=== PATIENT | male | born 1955 | race Caucasian/White ===

== ENCOUNTER 2017-03-23 07:00 | Inpatient (IN) ==
[2017-03-23] MEDS ORDERED: Piperacillin/Tazobactam 3.375 GM in D5% in Water (Mini-Bag+) 100 ML IVPB ONE (07:02)
[2017-03-23] MEDS ORDERED: Ipratropium/Albuterol Neb 3 ML IH ONE (07:02)
[2017-03-23] MEDS ORDERED: methylPREDNISolone 125 MG/2 ML VIAL IVP ONE (07:02)
--- NOTE | 2017-03-23 07:05 | Emergency Department Note ---
Disposition Clinical Impression: Acute exacerbation of chronic obstructive airways disease Disposition: Admitted As Inpatient Condition: Fair [facility]errals: [facility]Primary Care Provider[facility] - Forms: ED Satisfaction Letter Time of Disposition: 08:06 SOB HPI - General Chief Complaint: ED Shortness of Breath/Dyspnea Stated Complaint: REID Time Seen by Provider: 03/23/17 07:02 Source: patient, EMS Mode of arrival: EMS Limitations: no limitations Nursing Notes Reviewed: Yes Vital Signs Reviewed: Yes - History of Present Illness 61-year-old who apparently has a history of COPD, unresectable adenocarcinoma the right lung who comes in with increasing shortness of breath. The patient vomited last night and thinks he may have aspirated. Squad was called this morning the patient was found to pulse ox of mid 70s. Patient was placed on CPAP by the squad eyes according to them has improved markedly his pulse ox is in the 90s. 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 illness Severity: severe Consistency/Duration: constant Improves with: other Worsens with: exertion Known history of: COPD, other (Lung cancer) Associated symptoms: Reports: fever, cough, wheezing, sputum production Treatment prior to arrival: oxygen, NIPPV Cough Description: Involuntary Cough Frequency: Intermittent - Related Data Home Medications Medication Instructions Recorded Confirmed Aspirin [Adult Low Dose Aspirin EC] 81 mg PO DAILY 10/30/15 05/15/16 Diazepam [Valium] 10 mg PO HS PRN 10/30/15 05/15/16 Dronendrone [Multaq] 400 mg PO BID 10/30/15 05/15/16 Furosemide [Lasix] 20 mg PO BID 10/30/15 05/15/16 Omeprazole [PriLOSEC] 40 mg PO DAILY 10/30/15 05/15/16 Venlafaxine [Effexor] 75 mg PO BID 10/30/15 05/15/16 Warfarin [Coumadin] 5 mg PO 4XW 10/30/15 05/15/16 Diltiazem HCl [Diltiazem 24Hr Cd] 240 mg PO HS 11/01/15 05/15/16 Albuterol Neb [Proventil Neb] 2.5 mg IH Q4HR PRN 04/10/16 05/15/16 Atorvastatin [Lipitor] 40 mg PO HS 04/10/16 05/15/16 Morphine Immed Rel [Morphine 15 mg PO Q6H PRN 04/10/16 05/15/16 Sulfate] Oxygen 2 l .ROUTE AD 04/10/16 05/15/16 Pregabalin [Lyrica] 25 mg PO QID 04/10/16 05/15/16 Warfarin [Coumadin] 7.5 mg PO 3XW 04/10/16 05/15/16 Albuterol Sulfate [Albuterol 1 puff IH Q6H PRN 05/15/16 05/15/16 Inhaler] Ipratropium/Albuterol Neb [Duoneb] 3 ml IH Q6HR PRN 05/15/16 05/15/16 Mometasone Furoate [Asmanex] 110 mcg IH DAILY 05/15/16 05/15/16 Tiotropium [Spiriva] 18 mcg IH 0700 05/15/16 05/15/16 Allergies Allergy/AdvReac Type Severity Reaction Status Date / Time ciprofloxacin [From Cipro] AdvReac Vomiting Verified 04/10/16 12:23 prednisone AdvReac Diarrhea Verified 11/01/15 11:32 sotalol AdvReac EXCESSIVE Verified 04/10/16 12:23 DROWSINESS All systems ED: reviewed and negative except as stated. Constitutional: Reports: fever. Denies: chills, weakness, weight change Eyes: Denies: eye pain, eye discharge, vision change ENT ED: Denies: ear pain, throat pain, dental pain, hearing loss, epistaxis, congestion, dysphagia Cardiovascular: Denies: chest pain, palpitations, dyspnea on exertion, edema, syncope Respiratory: Reports: cough, dyspnea, wheezes. Denies: hemoptysis, stridor Gastrointestinal: Denies: abdominal pain, nausea, vomiting, diarrhea, constipation, hematemesis, melena, hematochezia Genitourinary: Denies: urgency, dysuria, frequency, hematuria Musculoskeletal: Denies: back pain, neck pain, arthralgia, myalgia Integumentary: Denies: rash, abrasion, lesions Neurological: Denies: headache, weakness, numbness, paresthesias, confusion, abnormal gait, vertigo Psychiatric: Denies: anxiety, depression, suicidal thoughts, homicidal thoughts , auditory hallucinations, visual hallucinations Endocrine: Denies: fatigue Hematological/Lymphatic: Denies: easy bleeding, easy bruising Allergic/Immunologic: Denies: facial swelling, urticaria Past Medical History - Past Medical History Medical history: Reports: atrial fibrillation, cancer, CHF, COPD, CVA, hypertension, other Psychiatric history: Reports: anxiety, depression - Social History Smoking Status: Former smoker Smokeless Tobacco Status: No Alcohol use: Reports: none Drug use: Reports: none Physical Exam - General Limitations: no limitations General appearance: alert, in no apparent distress - Head Head exam: atraumatic, normocephalic, normal inspection - Eye Eye exam: Present: normal appearance, PERRL, EOMI - ENT ENT exam: normal exam, normal oropharynx, mucous membranes moist - Neck Neck exam: Present: normal inspection, full ROM, trachea midline - Chest Chest inspection: Present: normal inspection, symmetric chest wall rise - Respiratory Respiratory exam: Present: respiratory distress, wheezes, accessory muscle use, prolonged expiratory phase - Cardiovascular Cardiovascular exam: Present: regular rate, normal rhythm, normal heart sounds - Abdominal Exam Abdominal exam: Present: soft, Non-Tender. Absent: tenderness, distention, guarding, rebound, rigidity - Extremities Exam Extremities exam: Present: normal inspection, full ROM. Absent: tenderness, pedal edema - Expanded Lower Extremity Exam Neurovascular/Tendon exam: Absent: motor deficit, sensory deficit, tendon deficit Gait: observed and normal - Back Exam Back exam: Present: normal inspection, full ROM. Absent: tenderness - Neurological Exam Neurological exam: Present: alert, oriented X3 - Psychiatric Psychiatric exam: Present: normal affect, normal mood - Skin Skin exam: Present: warm, dry, intact, normal color Course - Reevaluation(s) Reevaluation #1: 61-year-old with history COPD and lung cancer who comes in with increasing shortness of breath. Squad notes a pulse ox of 70% at his house. Is placed on CPAP by squad with improvement in his oxygenation. Chest x-ray shows hilar adenopathy with recommendations for CT with contrast however the patient does have known lung cancer . The patient vomited last night and feels that he may have aspirated. Time: 08:04 - Consultations Consultation #1: Discussed with , theodore. Time: 08:44 Vital Signs Temperature 98 F 03/23/17 07:02 Pulse Rate 102 03/23/17 07:02 Respiratory Rate 22 03/23/17 07:02 Blood Pressure 136/124 03/23/17 07:02 O2 Sat by Pulse Oximetry 95 03/23/17 07:02 Temperature 98 F 03/23/17 07:02 Pulse Rate 95 03/23/17 07:57 Respiratory Rate 24 03/23/17 07:57 Blood Pressure 109/83 03/23/17 07:57 O2 Sat by Pulse Oximetry 93 03/23/17 08:00 Oxygen Delivery Oxygen Delivery Nasal Cannula Shortness of Breath/Dyspnea - Medical Records Medical records reviewed: Yes I reviewed the patient's medical records. - Lab Data Lab results reviewed: Yes I reviewed the patient's lab results. Result diagrams: 03/23/17 07:14 03/23/17 07:14 Lab Results 03/23/17 03/23/17 03/23/17 Range/Units 07:14 07:14 07:14 WBC 13.8 H (4.3-11.1) K/mcL RBC 5.13 (4.19-5.50) M/mcL Hgb 14.7 (12.9-16.9) g/dL Hct 46.1 (37.5-50.1) % MCV 89.9 (83.0-100.0) fL MCH 28.7 (28.0-33.3) pg MCHC 31.9 (31.6-35.5) g/dL RDW 13.9 (11.5-14.5) % Plt Count 259 (140-400) K/mcL MPV 10.3 (9.4-12.4) fL Immature Gran % 1.0 (0-4) % Seg Neutrophils % 89.5 % Lymphocytes % 4.0 % Monocytes % 4.4 % Eosinophils % 0.8 % Basophils % 0.3 % Neutrophils # 12.3 H (1.6-8.9) K/mcL Lymphocytes # 0.6 (0.6-4.6) K/mcL Monocytes # 0.6 (0.0-1.3) K/mcL Eosinophils # 0.1 (0.0-0.6) K/mcL Basophils # 0.0 (0.0-0.2) K/mcL PT (9.4-12.1) Seconds INR APTT (26.0-36.0) Seconds ABG pH (7.32-7.45) pH Units ABG pCO2 (35-45) mmHg ABG pO2 (85-104) mmHg ABG HCO3 (21-27) mEQ/L ABG Total CO2 (20-26) mEq/L ABG O2 Saturation (95-98) % ABG Base Excess (-2.0 to 3.0) mEq/L Blood Gas Modality Inspired O2 % PEEP cm H2O Sodium 141 (136-145) mEq/L Potassium 3.7 (3.5-4.5) mEq/L Chloride 99 (98-109) mEq/L Carbon Dioxide 31 H (19-29) mEq/L BUN 17 (8-26) mg/dL Creatinine 1.23 (0.72-1.25) mg/dL Est GFR ( Amer) > 60 (> 60) Est GFR (Non-Af Amer) > 60 (> 60) BUN/Creatinine Ratio 14 (6-26) Glucose 133 H (70-99) mg/dL Calculated Osmolality 295 (280-300) Lactic Acid 1.6 (0.5-2.2) mmol/L Calcium 9.6 (8.6-10.8) mg/dL Troponin I (0-0.03) ng/mL B-Natriuretic Peptide (0-100) pg/mL 03/23/17 03/23/17 03/23/17 Range/Units 07:14 07:14 07:14 WBC (4.3-11.1) K/mcL RBC (4.19-5.50) M/mcL Hgb (12.9-16.9) g/dL Hct (37.5-50.1) % MCV (83.0-100.0) fL MCH (28.0-33.3) pg MCHC (31.6-35.5) g/dL RDW (11.5-14.5) % Plt Count (140-400) K/mcL MPV (9.4-12.4) fL Immature Gran % (0-4) % Seg Neutrophils % % Lymphocytes % % Monocytes % % Eosinophils % % Basophils % % Neutrophils # (1.6-8.9) K/mcL Lymphocytes # (0.6-4.6) K/mcL Monocytes # (0.0-1.3) K/mcL Eosinophils # (0.0-0.6) K/mcL Basophils # (0.0-0.2) K/mcL PT 19.8 H (9.4-12.1) Seconds INR 1.8 APTT 36.8 H (26.0-36.0) Seconds ABG pH (7.32-7.45) pH Units ABG pCO2 (35-45) mmHg ABG pO2 (85-104) mmHg ABG HCO3 (21-27) mEQ/L ABG Total CO2 (20-26) mEq/L ABG O2 Saturation (95-98) % ABG Base Excess (-2.0 to 3.0) mEq/L Blood Gas Modality Inspired O2 % PEEP cm H2O Sodium (136-145) mEq/L Potassium (3.5-4.5) mEq/L Chloride (98-109) mEq/L Carbon Dioxide (19-29) mEq/L BUN (8-26) mg/dL Creatinine (0.72-1.25) mg/dL Est GFR ( Amer) (> 60) Est GFR (Non-Af Amer) (> 60) BUN/Creatinine Ratio (6-26) Glucose (70-99) mg/dL Calculated Osmolality (280-300) Lactic Acid (0.5-2.2) mmol/L Calcium (8.6-10.8) mg/dL Troponin I 0.01 (0-0.03) ng/mL B-Natriuretic Peptide 53 (0-100) pg/mL 03/23/17 Range/Units 07:36 WBC (4.3-11.1) K/mcL RBC (4.19-5.50) M/mcL Hgb (12.9-16.9) g/dL Hct (37.5-50.1) % MCV (83.0-100.0) fL MCH (28.0-33.3) pg MCHC (31.6-35.5) g/dL RDW (11.5-14.5) % Plt Count (140-400) K/mcL MPV (9.4-12.4) fL Immature Gran % (0-4) % Seg Neutrophils % % Lymphocytes % % Monocytes % % Eosinophils % % Basophils % % Neutrophils # (1.6-8.9) K/mcL Lymphocytes # (0.6-4.6) K/mcL Monocytes # (0.0-1.3) K/mcL Eosinophils # (0.0-0.6) K/mcL Basophils # (0.0-0.2) K/mcL PT (9.4-12.1) Seconds INR APTT (26.0-36.0) Seconds ABG pH 7.41 (7.32-7.45) pH Units ABG pCO2 49 H (35-45) mmHg ABG pO2 103 (85-104) mmHg ABG HCO3 31.1 H (21-27) mEQ/L ABG Total CO2 32.6 H (20-26) mEq/L ABG O2 Saturation 98 (95-98) % ABG Base Excess 5.3 H (-2.0 to 3.0) mEq/L Blood Gas Modality CPAP Inspired O2 40 % PEEP 10 cm H2O Sodium (136-145) mEq/L Potassium (3.5-4.5) mEq/L Chloride (98-109) mEq/L Carbon Dioxide (19-29) mEq/L BUN (8-26) mg/dL Creatinine (0.72-1.25) mg/dL Est GFR ( Amer) (> 60) Est GFR (Non-Af Amer) (> 60) BUN/Creatinine Ratio (6-26) Glucose (70-99) mg/dL Calculated Osmolality (280-300) Lactic Acid (0.5-2.2) mmol/L Calcium (8.6-10.8) mg/dL Troponin I (0-0.03) ng/mL B-Natriuretic Peptide (0-100) pg/mL - Radiology Data Radiology results reviewed: Yes I reviewed the patient's radiology results. Chest X-Ray 03/23/17 07:02 IMPRESSION: 1. Abnormal enlarged right hilum which could relate to lymphadenopathy or possible pulmonary artery enlargement with indeterminate bilateral pulmonary nodular densities at the level of the hilum. Further evaluation with CT chest with contrast is recommended. D/ / 03/23/2017 07:48:26 Chester Dos Santos MD / fab Interpreting Provider: Chester Dos Santos MD - EKG Data EKG attestation: Yes I reviewed and interpreted this EKG. EKG shows normal: Reports: sinus rhythm Rate: Reports: normal Rhythm: Reports: NSR Interpretation: Reports: no acute changes Critical Care Time Critical Care Time: Yes Total Critical Care Time: 30 Attestation: The high probability of a clinically significant, sudden or life threatening deterioration of the [respiratory] system(s) required my full and direct attention, intervention and personal management. The aggregate critical care time was [30] minutes. This time is in addition to time spent performing reported procedures but includes the following: [x] Data Review and interpretation [x] Patient assessment and monitoring of vital signs [x] Documentation [x] Medication orders and management
[2017-03-23 07:27] LABS: Basophils % 0.3 %; Eosinophils # 0.1 K/mcL (0.0-0.6); Eosinophils % 0.8 %; Hematocrit 46.1 % (37.5-50.1); Hemoglobin 14.7 g/dL (12.9-16.9); INR 1.8; Lymphocytes # 0.6 K/mcL (0.6-4.6); Mean Corpuscular HGB Conc 31.9 g/dL (31.6-35.5); Mean Corpuscular Hemoglobin 28.7 pg (28.0-33.3); Mean Corpuscular Volume 89.9 fL (83.0-100.0); Mean Platelet Volume 10.3 fL (9.4-12.4); Monocytes # 0.6 K/mcL (0.0-1.3); Monocytes % 4.4 %; Neutrophils # 12.3 K/mcL (1.6-8.9); Platelet Count 259 K/mcL (140-400); Prothrombin Time 19.8 Seconds (9.4-12.1); Red Blood Count 5.13 M/mcL (4.19-5.50); Red Cell Distribution Width 13.9 % (11.5-14.5); Segmented Neutrophils % 89.5 %
[2017-03-23 07:29] LABS: Activated Partial Thrombo Time 36.8 Seconds (26.0-36.0)
[2017-03-23 07:44] LABS: ABG Base Excess 5.3 mEq/L (-2.0 to 3.0); ABG HCO3 31.1 mEQ/L (21-27); ABG Oxygen Saturation 98 % (95-98); ABG PCO2 49 mmHg (35-45); ABG PH 7.41 pH Units (7.32-7.45); ABG PO2 103 mmHg (85-104); ABG TCO2 32.6 mEq/L (20-26); Blood Gas FiO2 40 %; Blood Gas PEEP 10 cm H2O
[2017-03-23 07:45] LABS: BUN/Creatinine Ratio 14 (6-26); Blood Urea Nitrogen 17 mg/dL (8-26); Calcium 9.6 mg/dL (8.6-10.8); Carbon Dioxide 31 mEq/L (19-29); Chloride 99 mEq/L (98-109); Glucose 133 mg/dL (70-99); Osmolality,Calculated 295 (280-300); Potassium 3.7 mEq/L (3.5-4.5); Sodium 141 mEq/L (136-145); eGFR For African Americans > 60 (> 60); eGFR For Non-African Americans > 60 (> 60)
[2017-03-23] MEDS ORDERED: Acetaminophen 325 MG TABLET PO PRN (10:23)
[2017-03-23] MEDS ORDERED: Naloxone 0.4 MG/ML INJ IVP PRN (10:23)
[2017-03-23] MEDS ORDERED: *HR* Morphine 2 MG/ML SYRINGE IVP PRN (10:23)
[2017-03-23] MEDS ORDERED: Ondansetron 4 MG/2 ML VIAL IVP PRN (10:23)
[2017-03-23] MEDS ORDERED: Albuterol 2.5 MG/3 ML NEBULIZER IH PRN (10:33)
--- NOTE | 2017-03-23 11:04 | Internal Med History&Physical ---
Date of Encounter: 03/23/17 Time of Encounter: 11:03 Assessment and Plan (1) COPD with acute exacerbation Current visit: Yes Status: Acute Continue duonebs, steroids, O2 supplementation Repeat ABG not waranted at this time Will check ABG if clinically indicated COPDE may have been due to aspiration pneumonitis Will obtain Chest CT to rule out pneumonia No evidence of sepsis at this time (2) Chronic atrial fibrillation Current visit: Yes Status: Chronic Resume home doses of Multaq/Cardizem, Coumadin Monitor INR (3) Diastolic CHF, chronic Current visit: Yes Status: Chronic Continue home meds, including lasix Clinically euvolemic (4) Aspiration pneumonia Current visit: Yes Status: Suspected Suspected, based on patient history CXR equivocal due to chronic R hilar mass Patient has leukocytosis Will cover empirically with levoflox and clindamycin Obtain Chest CT Qualifiers: Aspiration pneumonia type: due to regurgitated food Laterality: unspecified laterality Lung location: unspecified part of lung Qualified Code(s): J69.0 - Pneumonitis due to inhalation of food and vomit Internal Medicine - H&P: HPI Chief complaint: I cant breathe, I think I aspirated Admitted From: Home Plans for Post Hospital Care: Home History of present illness: Mr. Davies is a 61 year old male Seen and evaluated at bedside Patient with PMH of Unresectable Lung CA and COPD, HTN, Afib on Multaq/cardizem and Coumadin, Chronic Resp failure on home O2 His complains this morning were " I cannot breathe , I think I ate too much 2 days ago and my stomach content went into my lungs". He reports being in his usual state of health till 2days ago when he woke up coughing , after he thought he may have aspirated on his dinner. He reports having cough and shortness of breath since then. He has noisy raspy breathing at baseline. When asked about this he reports "No cosmetic consultant has been able to help me with that. He has chronic respiratory failure and he is on home O2, per chart and patient, when the squad got to him, he was wheezing and hypoxic to 70s, improved with CPAP. He denies fever or chills, denies sick contacts or recent travle, he has no chest pain, palpitations, orthopnea or leg swelling Denies GI or symptoms At time of review, he undergoes a BiPAP in the patient's room, he was with the BiPAP stating I do not want. He denies any neurologic symptoms On presentation to the ER he was afebrile and vital signs were stable, CBC revealed leukocytosis with left shift, sub-therapeutic INR, arterial blood gas compensated mild hypercapnea, N lactate, and troponin negative. Chest x-ray with hilar mass. Chem unremarkable Patient received 125mg solumedrol, and Zosyn in he ER and patient was presented for admission Patient will be placed on observation for COPDE, rule out aspiration pneumonia Past Med Surg Social Fam HX - Past Medical History Medical history: atrial fibrillation, cancer, CHF, COPD, CVA, hypertension, other Psychiatric history: anxiety, depression - Social History Smoking Status: Former smoker Smokeless Tobacco Status: No Alcohol use: none Drug use: none - Family History Father Adopted: No Living Status: Hx Family Cardiac Disorders: Yes Hx Family Respiratory Disorders: Yes Hx Family Cancer: No Hx Family GI Disorders: No Hx Family Endocrine Disorder: No Hx Family Neuromuscular Disorders: No Hx Family Neurologic Disorders: No Hx Family HEENT Disorders: No Hx Family Autoimmune Disorders: No Internal Medicine - H&P: Meds Aspirin [Adult Low Dose Aspirin EC] 81 mg PO DAILY 10/30/15 [History] Dronendrone [Multaq] 400 mg PO BID 10/30/15 [History] Furosemide [Lasix] 20 mg PO BID 10/30/15 [History] Omeprazole [PriLOSEC] 40 mg PO DAILY 10/30/15 [History] Venlafaxine [Effexor] 150 mg PO QAM 10/30/15 [History] Warfarin [Coumadin] 5 mg PO 6XW 10/30/15 [History] Diltiazem HCl [Diltiazem 24Hr Cd] 240 mg PO HS 11/01/15 [History] Albuterol Neb [Proventil Neb] 2.5 mg IH Q4HR PRN 04/10/16 [History] Atorvastatin [Lipitor] 20 mg PO HS 04/10/16 [History] Oxygen 2 l .ROUTE AD 04/10/16 [History] Pregabalin [Lyrica] 150 mg PO QID 04/10/16 [History] Warfarin [Coumadin] 7.5 mg PO MO 04/10/16 [History] Albuterol Sulfate [Albuterol Inhaler] 2 puff IH Q4H PRN 05/15/16 [History] Baclofen [Lioresal] 10 mg PO TID PRN 03/23/17 [History] Budesonide/Formoterol 160/4.5 [Symbicort 160/4.5] 2 puff IH BIDR 03/23/17 [ History] Fluocinolone Acetonide [Synalar] 1 appl TP BID 03/23/17 [History] Hydroxyzine HCl 25 mg PO Q4H PRN 03/23/17 [History] Lidocaine Patch [Lidoderm 5% patch] 1 patch TP DAILY 03/23/17 [History] Magic Mouthwash 5 ml PO QID PRN 03/23/17 [History] Potassium Chloride [Klor-Con 10] 20 meq PO DAILY 03/23/17 [History] Sennosides/Docusate Sodium [Senna Plus] 1 tab PO BID 03/23/17 [History] Allergies ciprofloxacin [From Cipro] Adverse Reaction (Verified 04/10/16 12:23) Vomiting prednisone Adverse Reaction (Verified 11/01/15 11:32) Diarrhea sotalol Adverse Reaction (Verified 04/10/16 12:23) EXCESSIVE DROWSINESS All Systems PM: A 10-system review of systems was performed and is negative for pertinent findings except as documented above in the HPI. - Constitutional Constitutional: no chills, no fever(s), no night sweats - EENT Eyes: no change in vision, no discharge, no pain, no photophobia Ears: no ear discharge, no ear pain, no tinnitus Nose, mouth and throat: no dysphagia, no nasal discharge, no neck pain, no sore throat - Cardiovascular Cardiovascular ROS IM: as per HPI - Respiratory Respiratory: as per HPI - Gastrointestinal Gastrointestinal: as per HPI - Genitourinary Genitourinary ROS male: as per HPI - Musculoskeletal Musculoskeletal ROS IM: as per HPI - Integumentary Integumentary IM: no rash, no unusual bruising - Neurological Neurological ROS: no confusion, no convulsions, no focal weakness, no numbness, no tingling, no tremor(s) - Hematologic/Lymphatic Hematologic/Lymphatic: no easy bruising - Constitutional Vitals: Temp Pulse Resp BP Pulse Ox 98.8 F 86 17 101/71 93 03/23/17 09:43 03/23/17 09:43 03/23/17 09:43 03/23/17 09:43 03/23/17 09:43 General appearance: Present: A&O X 3, pleasant, no acute distress - Head Head exam: Present: atraumatic, normocephalic - Eye Eye exam: Present: PERRL, conjuntiva pink, sclera anicteric Pupils: Present: PERRL - Neck Neck exam general surgery: Present: supple, trachea midline. Absent: lymphadenopathy - Respiratory Respiratory exam: Present: rhonchi (Bilateral bibasal rhonchi, no wheezing, coarse breath sounds bilaterally). Absent: stridor, wheezes - Cardiovascular Cardiovascular exam: Present: RRR, +S1, +S2. Absent: diastolic murmur, gallop, rubs, systolic murmur - GI/Abdominal GI/Abdominal exam: Present: normal bowel sounds, soft, no peritoneal signs. Absent: distended, tenderness - Extremities Exam Extremities exam: Present: warm, radial pulses palpable and symetrical. Absent : calf tenderness, cyanotic, pedal edema - Neurological Exam Neurological exam: Present: alert, CN II-XII intact, oriented X3, no focal deficits. Absent: pronater drift, facial droop, speech deficit - Skin Skin exam: Present: dry, intact Internal Med - H&P Results - Labs CBC & Chem 7: 03/23/17 07:14 03/23/17 07:14
[2017-03-23] MEDS: Ipratropium/Albuterol Neb 3 ML IH SCH ×4 (11:18→23:32)
[2017-03-23] MEDS: Aspirin Enteric Coated 81 MG Tablet PO SCH (12:04)
[2017-03-23] MEDS: Pregabalin 75 MG CAPSULE PO SCH ×3 (12:04→21:10)
--- NOTE | 2017-03-23 17:08 | Electrocardiograph Report ---
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
[2017-03-23] MEDS ORDERED: *HR* Morphine Immed Rel 30 MG TABLET PO PRN (17:44)
[2017-03-23] MEDS: *HR* Warfarin 5 MG TABLET PO SCH (17:56)
[2017-03-23] MEDS: Furosemide 20 MG TABLET PO SCH (17:56)
[2017-03-23] MEDS: Budesonide/Formoterol 160/4.5 MDI IH SCH (19:58)
[2017-03-23] MEDS ORDERED: Cefdinir 300 MG CAPSULE PO SCH (21:00)
[2017-03-23] MEDS ORDERED: Furosemide 20 MG TABLET PO SCH (21:00)
[2017-03-23] MEDS: Diltiazem CD (24hr) 240 MG CAPSULE PO SCH (21:10)
[2017-03-23] MEDS: *HR* HYDROcodone/Acet 5/325 mg TABLET PO PRN (21:10)
[2017-03-23] MEDS: Sennosides/Docusate Sodium TABLET PO SCH (21:11)
[2017-03-24] MEDS: Ipratropium/Albuterol Neb 3 ML IH SCH ×6 (03:47→23:41)
[2017-03-24 04:34] LABS: Basophils % 0.1 %; Hematocrit 38.1 % (37.5-50.1); INR 2.5; Immature Granulocytes % 0.5 % (0-4); Lymphocytes # 0.6 K/mcL (0.6-4.6); Lymphocytes % 3.3 %; Mean Corpuscular HGB Conc 33.1 g/dL (31.6-35.5); Mean Corpuscular Hemoglobin 29.3 pg (28.0-33.3); Mean Corpuscular Volume 88.6 fL (83.0-100.0); Mean Platelet Volume 10.8 fL (9.4-12.4); Monocytes # 0.7 K/mcL (0.0-1.3); Monocytes % 3.7 %; Platelet Count 223 K/mcL (140-400); Prothrombin Time 27.8 Seconds (9.4-12.1); Red Cell Distribution Width 14.2 % (11.5-14.5); Segmented Neutrophils % 92.4 %
[2017-03-24 04:37] LABS: Activated Partial Thrombo Time 34.3 Seconds (26.0-36.0)
[2017-03-24 04:40] LABS: Hemoglobin A1C 5.9 %
[2017-03-24 04:44] LABS: BUN/Creatinine Ratio 17 (6-26); Blood Urea Nitrogen 18 mg/dL (8-26); Calcium 9.2 mg/dL (8.6-10.8); Carbon Dioxide 29 mEq/L (19-29); Chloride 107 mEq/L (98-109); Glucose 215 mg/dL (70-99); Osmolality,Calculated 306 (280-300); Potassium 3.4 mEq/L (3.5-4.5); Sodium 144 mEq/L (136-145); eGFR For African Americans > 60 (> 60); eGFR For Non-African Americans > 60 (> 60)
[2017-03-24 06:01] LABS: Hemoglobin 12.6 g/dL (12.9-16.9)
[2017-03-24 06:05] LABS: Large Platelets Present (Not Present); Platelet Estimate Normal (Normal)
[2017-03-24] MEDS: Budesonide/Formoterol 160/4.5 MDI IH SCH ×2 (07:52→19:47)
[2017-03-24] MEDS: Levofloxacin 750 MG/150 ML 750 MG/150 ML BAG IVPB SCH (08:24)
[2017-03-24] MEDS: Pregabalin 75 MG CAPSULE PO SCH ×4 (08:25→20:33)
[2017-03-24] MEDS: Aspirin Enteric Coated 81 MG Tablet PO SCH (08:25)
[2017-03-24] MEDS: Furosemide 20 MG TABLET PO SCH ×2 (08:25→17:44)
[2017-03-24] MEDS: Sennosides/Docusate Sodium TABLET PO SCH ×2 (08:25→20:33)
[2017-03-24] MEDS: *HR* HYDROcodone/Acet 5/325 mg TABLET PO PRN (08:28)
[2017-03-24] MEDS: FluocinoLONE Acet 0.025% CRM 15 GM TUBE TP SCH ×3 (08:29→20:36)
[2017-03-24] MEDS: predniSONE 20 MG TABLET PO SCH (08:30)
--- NOTE | 2017-03-24 14:32 | Internal Med Progress Note ---
Date of Encounter: 03/24/17 Time of Encounter: 08:50 - Assessment and plan (1) COPD with acute exacerbation Current Visit: Yes Status: Acute Assessment and plan: Patient presented to the emergency room yesterday for possible pneumonia, exacerbation of COPD. He does have wheezing throughout all lung mcadams, as well as rhonchi. He does wear 2 L of oxygen at home all the time. Currently on 3 L here satting at 97%. Chest CT showed new multifocal bilateral ground glass opacities which is most consistent with an infectious etiology. There is an increase in right perihilar right upper lobe soft tissue radiologist felt represented combination of mass and consolidation. He also has a stable spiculated lesion in the left upper lobe. Continue duo nebs, steroids, and oxygen to maintain sats greater than 92% Monitor labs Monitor patient Radiology recommended PET CT for increase in right perihilar, right upper lobe soft tissue. (2) Chronic atrial fibrillation Current Visit: Yes Status: Chronic Assessment and plan: Rate controlled with Cardizem. Patient is on Coumadin. Monitor INR. Resume home doses of Multaq and Cardizem (3) Diastolic CHF, chronic Current Visit: Yes Status: Chronic Assessment and plan: BNP is 53. Continue home meds including Lasix. Patient denies a cough. There is no peripheral or pedal edema. (4) Aspiration pneumonia Current Visit: Yes Status: Suspected Assessment and plan: Patient states that he ate too much food night before last, he was awakened at 2 AM with feeling that he had vomited and had food in his mouth and throat. Aspiration pneumonia suspected. Chest x-ray was equivocal due to chronic right hilar mass. He does have leukocytosis. He has been afebrile and normotensive. He had tachycardia early on at admission in the ER. He is being treated empirically with Levaquin and clindamycin. He does wear oxygen at home 2 L all the time. Currently he is wearing 3 L to maintain his sats at 97%. Oxygen as needed to maintain sats greater than 92%. Plan as above for COPD Qualifiers: Aspiration pneumonia type: due to regurgitated food Laterality: unspecified laterality Lung location: unspecified part of lung Qualified Code(s): J69.0 - Pneumonitis due to inhalation of food and vomit (5) Leukocytosis Current Visit: No Status: Acute Assessment and plan: Leukocytosis. White counts 18.4. Neutrophils high at 17. Continue to monitor patient Labs in the a.m. He has been afebrile, normotensive, pulse rate within normal limits. No signs of sepsis. Qualifiers: Leukocytosis type: unspecified Qualified Code(s): D72.829 - Elevated white blood cell count, unspecified - Time Spent With Patient less than 15 minutes - Subjective Interval history: Patient was admitted to the observation unit from the emergency department after presenting to them with what is most likely aspiration pneumonia. He said that he ate too much food and was awakened at 2 AM yesterday morning feeling as if he had vomited having food in his throat and mouth. His chest x- ray showed new multifocal bilateral groundglass opacities which is most consistent with an infectious or inflammatory etiology. It also showed an increase in right perihilar and right upper lobe soft tissue, felt to represent a combination of mass and consolidation. Is recommended that a PET CT be utilized if patient has history of malignancy in this area. Patient has a stable spiculated lesion in the left upper lobe. PET scan will be ordered. White count is 18.6 with shift in neutrophils at 17. Patient has been afebrile and normotensive. No reason to suspect sepsis at this time. Patient does have wheezing and rhonchi in all posterior lung mcadams. He is not in respiratory distress. He is accepting of spending the night for further monitoring. - Constitutional Vitals: Temp Pulse Resp BP Pulse Ox 98.0 F 94 18 101/60 96 03/24/17 11:36 03/24/17 11:36 03/24/17 11:36 03/24/17 11:36 03/24/17 11:36 General appearance: Present: A&O X 3, no acute distress, answers questions appropriately. Absent: pleasant - Head Head exam: Present: normal inspection - Eye Eye exam: Present: normal appearance, conjuntiva pink - ENT ENT exam: Present: mucous membranes moist, normal exam - Neck Neck exam general surgery: Present: normal inspection. Absent: lymphadenopathy , tenderness - Respiratory Respiratory exam: Present: rhonchi, wheezes. Absent: chest wall tenderness, respiratory distress - Cardiovascular Cardiovascular exam: Present: RRR, +S1, +S2. Absent: diastolic murmur, systolic murmur - GI/Abdominal GI/Abdominal exam: Present: normal bowel sounds, soft. Absent: hepatomegaly, tenderness - Extremities Exam Extremities exam: Present: normal inspection, warm, radial pulses palpable and symetrical. Absent: pedal edema, tenderness - Neurological Exam Neurological exam: Present: alert, oriented X3, no focal deficits, strengths equal and symetr throughout. Absent: facial droop, speech deficit - Skin Skin exam: Present: dry, intact Internal Medicine: Result - Labs CBC & Chem 7: 03/24/17 04:06 03/24/17 04:06 Labs: Short CBC 03/24/17 Range/Units 04:06 WBC 18.4 H (4.3-11.1) K/mcL Hgb 12.6 L D (12.9-16.9) g/dL Hct 38.1 (37.5-50.1) % Plt Count 223 (140-400) K/mcL Neutrophils # 17.0 H (1.6-8.9) K/mcL BMP 03/24/17 04:06 Sodium 144 Potassium 3.4 L Chloride 107 Carbon Dioxide 29 BUN 18 Creatinine 1.03 Glucose 215 H Calcium 9.2 - ABG Interpretation ABG results: ABG ABG pH 7.41 pH Units (7.32-7.45) 03/23/17 07:36 ABG pCO2 49 mmHg (35-45) H 03/23/17 07:36 ABG pO2 103 mmHg (85-104) 03/23/17 07:36 ABG O2 Saturation 98 % (95-98) 03/23/17 07:36 PT/INR, D-dimer PT 27.8 Seconds (9.4-12.1) H 03/24/17 04:06 Consult Discharge Plan - Plan [facility]errals: [facility] Care Provider[facility] - 03/31/17 10:15 am
[2017-03-24] MEDS: *HR* Warfarin 5 MG TABLET PO SCH (17:44)
[2017-03-24] MEDS ORDERED: *HR* Warfarin 2.5 MG TABLET PO ONE (18:18)
[2017-03-24] MEDS: Diltiazem CD (24hr) 240 MG CAPSULE PO SCH (20:33)
[2017-03-24] MEDS: *HR* Morphine Immed Rel 30 MG TABLET PO PRN (20:40)
[2017-03-25] MEDS: Ipratropium/Albuterol Neb 3 ML IH SCH ×5 (03:55→20:42)
[2017-03-25 05:14] LABS: Basophils % 0.2 %; Eosinophils % 0.2 %; Hematocrit 36.6 % (37.5-50.1); Immature Granulocytes % 0.7 % (0-4); Lymphocytes # 1.5 K/mcL (0.6-4.6); Lymphocytes % 9.9 %; Mean Corpuscular HGB Conc 32.8 g/dL (31.6-35.5); Mean Corpuscular Hemoglobin 29.1 pg (28.0-33.3); Mean Corpuscular Volume 88.8 fL (83.0-100.0); Mean Platelet Volume 10.4 fL (9.4-12.4); Monocytes # 0.8 K/mcL (0.0-1.3); Monocytes % 5.7 %; Neutrophils # 12.2 K/mcL (1.6-8.9); Platelet Count 222 K/mcL (140-400); Red Blood Count 4.12 M/mcL (4.19-5.50); Red Cell Distribution Width 14.6 % (11.5-14.5); Segmented Neutrophils % 83.3 %
[2017-03-25 05:18] LABS: Prothrombin Time 33.5 Seconds (9.4-12.1)
[2017-03-25 05:51] LABS: BUN/Creatinine Ratio 17 (6-26); Blood Urea Nitrogen 16 mg/dL (8-26); Calcium 8.8 mg/dL (8.6-10.8); Carbon Dioxide 24 mEq/L (19-29); Chloride 106 mEq/L (98-109); Glucose 102 mg/dL (70-99); Osmolality,Calculated 297 (280-300); Potassium 3.4 mEq/L (3.5-4.5); Sodium 143 mEq/L (136-145); eGFR For African Americans > 60 (> 60); eGFR For Non-African Americans > 60 (> 60)
[2017-03-25] MEDS: Budesonide/Formoterol 160/4.5 MDI IH SCH ×2 (07:56→20:41)
[2017-03-25 08:03] LABS: Bilirubin,Urine Negative (Negative); Blood,Urine Negative (Negative); Clarity,Urine Clear (Clear); Color,Urine Yellow (Yellow); Glucose,Urine (UA) 100 mg/dL (Normal); Ketones,Urine Negative (Negative); Leukocyte Esterase,Urine Negative (Negative); Nitrite,Urine Negative (Negative); PH,Urine 7.5 pH Units (5.0-8.0); Protein,Urine Trace mg/dL (Neg-Trace); Urobilinogen,Urine Normal (Normal)
[2017-03-25 08:06] LABS: Bacteria,Urine None Seen per hpf (None-Few); Hyaline Casts,Urine None Seen per lpf (None-Few); RBC,Urine 0-3 per hpf (0-3); Squamous Epithelial Cell,Urine Few per lpf (None-Few); WBC,Urine 0-3 per hpf (0-3)
[2017-03-25] MEDS: Pregabalin 75 MG CAPSULE PO SCH ×4 (08:49→20:48)
[2017-03-25] MEDS: *HR* HYDROcodone/Acet 5/325 mg TABLET PO PRN (08:50)
[2017-03-25] MEDS: Furosemide 20 MG TABLET PO SCH (08:50)
[2017-03-25] MEDS: FluocinoLONE Acet 0.025% CRM 15 GM TUBE TP SCH ×2 (08:50→20:55)
[2017-03-25] MEDS: Sennosides/Docusate Sodium TABLET PO SCH ×2 (08:50→20:51)
[2017-03-25] MEDS: Aspirin Enteric Coated 81 MG Tablet PO SCH (08:50)
[2017-03-25] MEDS: Levofloxacin 750 MG/150 ML 750 MG/150 ML BAG IVPB SCH (08:51)
[2017-03-25] MEDS: predniSONE 20 MG TABLET PO SCH (08:51)
--- NOTE | 2017-03-25 11:02 | Internal Med Progress Note ---
Date of Encounter: 03/25/17 Time of Encounter: 09:30 - Assessment and plan (1) Acute and chronic respiratory failure Current Visit: No Status: Acute Assessment and plan: Secondary to COPD exacerbation and community acquire pneumonia. Patient uses 2 L of oxygen at home. CT chest revealed new multifocal bilateral groundglass opacities, increase in right hilar/right upper lobe soft tissue felt to represent combination of mass and consolidation, stable spiculated lesion in the left upper lobe. Clinically slowly improving. Continue weaning down oxygen to keep SaO2 between 90 and 92%. Continue nebulizations, prednisone, levofloxacin, and Symbicort. Patient explaining details the CT chest findings and the need for him to follow- up in the outpatient oncology clinic. He verbalized understanding and agree with the plan. He statesthat he is leaving tomorrow the hospital. Qualifiers: Respiratory failure complication: hypoxia Qualified Code(s): J96.21 - Acute and chronic respiratory failure with hypoxia (2) Acute exacerbation of chronic obstructive airways disease Current Visit: Yes Status: Acute Assessment and plan: Plan as above. (3) CAP (community acquired pneumonia) Current Visit: No Status: Acute Assessment and plan: Plan as above. (4) Chronic atrial fibrillation Current Visit: Yes Status: Chronic Assessment and plan: Heart rate controlled with Cardizem and Multaq. Patient on Coumadin at home. INR therapeutic at 3. (5) Diastolic CHF, chronic Current Visit: Yes Status: Chronic Assessment and plan: BNP is 53. Continue home meds including Lasix. Euvolemic,. Compensated. (6) Supratherapeutic INR Current Visit: No Status: Acute Assessment and plan: Holding Coumadin. monitoring of INR. - Subjective Interval history: patient reports productive cough and improved shortness of breath compared to admission. no hemoptysis. - Constitutional Vitals: Temp Pulse Resp BP Pulse Ox 98.1 F 64 12 101/63 96 03/25/17 07:25 03/25/17 07:25 03/25/17 07:56 03/25/17 07:25 03/25/17 08:45 General appearance: Present: cooperative, A&O X 3, no acute distress, answers questions appropriately. Absent: pleasant - Neck Neck exam general surgery: Present: supple, trachea midline. Absent: lymphadenopathy - Respiratory Respiratory exam: Present: rhonchi, wheezes (mild diffuse wheezes) - Cardiovascular Cardiovascular exam: Present: RRR - Extremities Exam Extremities exam: Absent: pedal edema - Neurological Exam Neurological exam: Present: alert, oriented X3, no focal deficits, strengths equal and symetr throughout. Absent: facial droop, speech deficit - Skin Skin exam: Absent: rash Internal Medicine: Result - Labs CBC & Chem 7: 03/25/17 04:41 03/25/17 04:41 Labs: Short CBC 03/25/17 Range/Units 04:41 WBC 14.7 H (4.3-11.1) K/mcL Hgb 12.0 L (12.9-16.9) g/dL Hct 36.6 L (37.5-50.1) % Plt Count 222 (140-400) K/mcL Neutrophils # 12.2 H (1.6-8.9) K/mcL BMP 03/25/17 04:41 Sodium 143 Potassium 3.4 L Chloride 106 Carbon Dioxide 24 BUN 16 Creatinine 0.94 Glucose 102 H Calcium 8.8 Urine 03/25/17 Range/Units 07:15 Urine Color Yellow (Yellow) Urine Clarity Clear (Clear) Urine pH 7.5 (5.0-8.0) pH Units Ur Specific [place] 1.020 (1.010-1.025) Urine Protein Trace (Neg-Trace) mg/dL Urine Glucose (UA) 100 H (Normal) mg/dL - ABG Interpretation ABG results: ABG ABG pH 7.41 pH Units (7.32-7.45) 03/23/17 07:36 ABG pCO2 49 mmHg (35-45) H 03/23/17 07:36 ABG pO2 103 mmHg (85-104) 03/23/17 07:36 ABG O2 Saturation 98 % (95-98) 03/23/17 07:36 PT/INR, D-dimer PT 33.5 Seconds (9.4-12.1) H 03/25/17 04:41 Consult Discharge Plan - Plan [facility]errals: [facility] [[facility] Care Provider[facility] - 03/31/17 10:15 am
[2017-03-25] MEDS: GuaiFENesin/Dextromethorphan TABLET PO SCH ×2 (12:45→20:47)
[2017-03-25] MEDS: *HR* Morphine Immed Rel 30 MG TABLET PO PRN (20:51)
[2017-03-25] MEDS: Diltiazem CD (24hr) 240 MG CAPSULE PO SCH (20:51)
[2017-03-26] MEDS: Ipratropium/Albuterol Neb 3 ML IH SCH ×4 (01:00→11:28)
[2017-03-26 04:30] LABS: Basophils % 0.4 %; Eosinophils # 0.1 K/mcL (0.0-0.6); Eosinophils % 1.1 %; Hematocrit 39.8 % (37.5-50.1); INR 1.8; Immature Granulocytes % 1.3 % (0-4); Lymphocytes # 1.3 K/mcL (0.6-4.6); Mean Corpuscular HGB Conc 32.7 g/dL (31.6-35.5); Mean Corpuscular Hemoglobin 28.3 pg (28.0-33.3); Mean Corpuscular Volume 86.5 fL (83.0-100.0); Mean Platelet Volume 10.1 fL (9.4-12.4); Monocytes # 0.8 K/mcL (0.0-1.3); Neutrophils # 7.3 K/mcL (1.6-8.9); Platelet Count 229 K/mcL (140-400); Red Cell Distribution Width 14.5 % (11.5-14.5); Segmented Neutrophils % 76.2 %
[2017-03-26 04:47] LABS: BUN/Creatinine Ratio 16 (6-26); Blood Urea Nitrogen 14 mg/dL (8-26); Calcium 9.1 mg/dL (8.6-10.8); Carbon Dioxide 27 mEq/L (19-29); Chloride 107 mEq/L (98-109); Glucose 112 mg/dL (70-99); Magnesium 2.4 mg/dL (1.6-2.6); Osmolality,Calculated 297 (280-300); Phosphorous 3.5 mg/dL (2.3-4.7); Potassium 3.6 mEq/L (3.5-4.5); Sodium 143 mEq/L (136-145); eGFR For African Americans > 60 (> 60); eGFR For Non-African Americans > 60 (> 60)
[2017-03-26 07:13] VITALS: BP 111/69
[2017-03-26] MEDS: Levofloxacin 750 MG/150 ML 750 MG/150 ML BAG IVPB SCH (07:50)
[2017-03-26] MEDS: Sennosides/Docusate Sodium TABLET PO SCH (07:50)
[2017-03-26] MEDS: Pregabalin 75 MG CAPSULE PO SCH (07:51)
[2017-03-26] MEDS: Aspirin Enteric Coated 81 MG Tablet PO SCH (07:51)
[2017-03-26] MEDS: GuaiFENesin/Dextromethorphan TABLET PO SCH (07:52)
[2017-03-26] MEDS: predniSONE 20 MG TABLET PO SCH (07:52)
[2017-03-26] MEDS: FluocinoLONE Acet 0.025% CRM 15 GM TUBE TP SCH (07:52)
[2017-03-26] MEDS: *HR* Morphine Immed Rel 30 MG TABLET PO PRN (07:52)
[2017-03-26] MEDS: Budesonide/Formoterol 160/4.5 MDI IH SCH (08:07)
--- NOTE | 2017-03-26 10:54 | Discharge Summary ---
Date of Encounter: 03/26/17 Time of Encounter: 10:00 - Discharge Diagnosis (1) Acute and chronic respiratory failure Priority: Primary Status: Acute Qualifiers: Respiratory failure complication: hypoxia Qualified Code(s): J96.21 - Acute and chronic respiratory failure with hypoxia (2) Acute exacerbation of chronic obstructive airways disease Priority: Primary Status: Acute (3) CAP (community acquired pneumonia) Priority: Primary Status: Acute (4) Chronic atrial fibrillation Priority: Secondary Status: Chronic (5) Diastolic CHF, chronic Priority: Secondary Status: Chronic - Discharge Medications Prescriptions: HYDROcodone/Acet 5/325 mg [[place] 5-325 mg] 1 tab PO Q4HR PRN #14 tablet PRN Reason: Moderate Pain (4-6) Cefdinir [Omnicef] 300 mg PO BID #8 capsule GuaiFENesin/Dextromethorphan [Mucinex Dm] 1 each PO BID #10 tab.er.12h predniSONE [PredniSONE] 20 mg PO AD #6 tablet Home Medications: Aspirin [Adult Low Dose Aspirin EC] 81 mg PO DAILY 10/30/15 [History] Dronendrone [Multaq] 400 mg PO BID 10/30/15 [History] Furosemide [Lasix] 20 mg PO BID 10/30/15 [History] Omeprazole [PriLOSEC] 40 mg PO DAILY 10/30/15 [History] Venlafaxine [Effexor] 150 mg PO QAM 10/30/15 [History] Warfarin [Coumadin] 5 mg PO 6XW 10/30/15 [History] Diltiazem HCl [Diltiazem 24Hr Cd] 240 mg PO HS 11/01/15 [History] Albuterol Neb [Proventil Neb] 2.5 mg IH Q4HR PRN 04/10/16 [History] Atorvastatin [Lipitor] 20 mg PO HS 04/10/16 [History] Oxygen 2 l .ROUTE AD 04/10/16 [History] Pregabalin [Lyrica] 150 mg PO QID 04/10/16 [History] Warfarin [Coumadin] 7.5 mg PO MO 04/10/16 [History] Albuterol Sulfate [Albuterol Inhaler] 2 puff IH Q4H PRN 05/15/16 [History] Baclofen [Lioresal] 10 mg PO TID PRN 03/23/17 [History] Budesonide/Formoterol 160/4.5 [Symbicort 160/4.5] 2 puff IH BIDR 03/23/17 [ History] Fluocinolone Acetonide [Synalar] 1 appl TP BID 03/23/17 [History] Lidocaine Patch [Lidoderm 5% patch] 1 patch TP DAILY 03/23/17 [History] Magic Mouthwash 5 ml PO QID PRN 03/23/17 [History] Potassium Chloride [Klor-Con 10] 20 meq PO DAILY 03/23/17 [History] Sennosides/Docusate Sodium [Senna Plus] 1 tab PO BID 03/23/17 [History] hydrOXYzine HCl [Hydroxyzine HCl] 25 mg PO Q4H PRN 03/23/17 [History] Cefdinir [Omnicef] 300 mg PO BID #8 capsule 03/26/17 [Rx] GuaiFENesin/Dextromethorphan [Mucinex Dm] 1 each PO BID #10 tab.er.12h 03/26/17 [Rx] HYDROcodone/Acet 5/325 mg [[place] 5-325 mg] 1 tab PO Q4HR PRN #14 tablet [Rx] Ipratropium/Albuterol Neb [Duoneb] 3 ml IH [id number] #0 inhsol 03/26/17 [Rx] predniSONE [PredniSONE] 20 mg PO AD #6 tablet 03/26/17 [Rx] Allergies/Adverse Reactions: Allergies ciprofloxacin [From Cipro] Adverse Reaction (Verified 04/10/16 12:23) Vomiting prednisone Adverse Reaction (Verified 11/01/15 11:32) Diarrhea sotalol Adverse Reaction (Verified 04/10/16 12:23) EXCESSIVE DROWSINESS Date of admission: 03/24/17 18:14 [facility] care physician: [facility] Consults: 03/26/17 10:11 Consult to [employer] [CONS] Routine Reason for Consult: community home O2 - Patient Status Disposition: Home, Self-Care Condition: Good Functional capacity at discharge: independent ambulation Overall status at discharge: patient is progressing back to baseline - Discharge Instructions Instructions: Heart Failure (DC), Chronic Obstructive Pulmonary Disease (DC), Sepsis (DC), Pneumonia (DC) Follow Up With: [facility] [Primary [facility] Provider[facility] - 03/31/17 10:15 am Additional Instructions: [facility], YOU MAY NEED A REPEAT CT CHEST IN 4 WEEKS TO ADDRESS POSSIBLE LUNG MASS VERSUS PNEUMONIA. KEEP YOUR OXYGEN LEVELS AT 90-92%. - Diet and Activity Activity: resume usual activities as tolerated Diet: low fat, low cholesterol Interval History: PATIENT FEELS BETTER, HIS COUGH HAS IMPROVED. HE IS EAGER TO GO HOME. Hospital course: Mr. Davies is a 61 year old male with past medical history of COPD, chronic respiratory failure on 2 L of oxygen at home, diastolic heart failure, and atrial fibrillation on anti-correlation with Coumadin who presented with a chief complaint of shortness of breath. CT chest revealed new multifocal bilateral groundglass opacities, increase in right hilar/right upper lobe soft tissue felt to represent combination of mass and consolidation, stable spiculated lesion in the left upper lobe. He was admitted with diagnosis of acute on chronic respiratory failure secondary to COPD exacerbation and community acquired pneumonia. He was started on empiric antibiotics with IV levofloxacin, and immunizations, oral prednisone and Symbicort with clinical improvement. PLAN: Continue Levaquin for a total of 7 days. Follow-up with primary care physician next week. Follow with oncology doctor. Patient will need a repeat CT of the chest in 4 weeks to address findings of suspected mass versus consolidation in right upper lobe. - Time Spent with Patient Total time spent providing and/or coordinating discharge services: - Constitutional Vitals: Temp Pulse Resp BP Pulse Ox 97.9 F 85 16 111/69 95 03/26/17 07:08 03/26/17 07:08 03/26/17 08:07 03/26/17 07:08 03/26/17 08:08 General appearance: Present: cooperative, A&O X 3, no acute distress, answers questions appropriately. Absent: pleasant - Neck Neck exam general surgery: Present: supple, trachea midline. Absent: lymphadenopathy - Respiratory Respiratory exam: Present: rales (AT RIGHT LUNG BASE) - Cardiovascular Cardiovascular exam: Present: RRR - GI/Abdominal GI/Abdominal exam: Present: normal bowel sounds, soft. Absent: distended, tenderness - Extremities Exam Extremities exam: Absent: pedal edema - Back Exam Back exam: Absent: CVA tenderness (L), CVA tenderness (R) - Neurological Exam Neurological exam: Present: alert, oriented X3, no focal deficits, strengths equal and symetr throughout. Absent: facial droop, speech deficit - Skin Skin exam: Absent: rash - VTE Documentation of Mechanical Device: Graduated compression elastic hosiery
== END 2017-03-26 11:54 | disposition home or self-care (01) | DRG 190 ==
LOC: EMEROO 07:00 → 3BNU 07:00 → SUATTDRO 03-24 18:14
PROVIDERS: ADMIT Internal Medicine; ATTEND Internal Medicine

== ENCOUNTER 2018-01-05 12:02 | Inpatient (IN) ==
[2018-01-05] MEDS ORDERED: methylPREDNISolone 125 MG/2 ML VIAL IVP ONE (12:05)
[2018-01-05] MEDS ORDERED: Ipratropium/Albuterol Neb 3 ML IH ONE ×2 (12:05→18:37)
--- NOTE | 2018-01-05 12:10 | Emergency Department Note ---
Disposition Clinical Impression: COPD exacerbation Dyspnea Qualifiers: Dyspnea type: unspecified Qualified Code(s): R06.00 - Dyspnea, unspecified Pneumonia Qualifiers: Pneumonia type: due to unspecified organism Laterality: unspecified laterality Lung location: unspecified part of lung Qualified Code(s): J18.9 - Pneumonia, unspecified organism Disposition: Admitted As Inpatient Condition: Fair SOB HPI - General Chief Complaint: ED Shortness of Breath/Dyspnea Stated Complaint: REID Time Seen by Provider: 01/05/18 12:05 Source: patient Limitations: no limitations Nursing Notes Reviewed: Yes Vital Signs Reviewed: Yes - History of Present Illness Patient presents for evaluation of shortness of breath. Started yesterday. Subjective chills and fever. Patient has intermittent home oxygen use. Patient states he felt that that in his home meds were not helping. Patient is brought in by squad who gave him a breathing treatment as well as nitroglycerin for his breathing. The patient states that when he gets like this he needs IV steroids. The patient presents in moderate respiratory distress. No tachypnea. Patient has rales at bases as well as associated wheezing and rhonchi throughout the upper portions of his lungs. The patient states he has had a cough intermittently productive sputum. No colored sputum. Patient recently had a procedure done and was transitioned from Coumadin and bridged with Lovenox back to his Coumadin. - Related Data Home Medications Medication Instructions Recorded Confirmed Aspirin [Adult Low Dose Aspirin EC] 81 mg PO DAILY 10/30/15 01/05/18 Furosemide [Lasix] 20 mg PO BID 10/30/15 01/05/18 Omeprazole [PriLOSEC] 20 mg PO BID 10/30/15 01/05/18 Warfarin [Coumadin] 5 mg PO SUTUWETHFRSA 10/30/15 01/05/18 Diltiazem HCl [Diltiazem 24Hr Cd] 240 mg PO DAILY 11/01/15 01/05/18 Atorvastatin [Lipitor] 20 mg PO HS 04/10/16 01/05/18 Oxygen 2 l .ROUTE AD 04/10/16 01/05/18 Warfarin [Coumadin] 7.5 mg PO MO 04/10/16 01/05/18 Budesonide/Formoterol 160/4.5 2 puff IH BIDR 03/23/17 01/05/18 [Symbicort 160/4.5] Potassium Chloride [Klor-Con 10] 20 meq PO DAILY 03/23/17 01/05/18 Roflumilast [Daliresp] 500 mcg PO DAILY 08/24/17 01/05/18 Acetaminophen [Tylenol] 650 mg PO Q6H PRN 01/05/18 01/05/18 Capsaicin [Arthritis Pain Relief] 1 appl TP QID 01/05/18 01/05/18 Dronedarone [Multaq] 400 mg PO BIDWM 01/05/18 01/05/18 Enoxaparin [Lovenox] 150 mg SQ DAILY 01/05/18 GuaiFENesin/Dextromethorphan 10 ml PO Q6H PRN 01/05/18 01/05/18 [Tussin Dm Syrup] Ipratropium/Albuterol Neb [Duoneb] 3 ml IH Q4H 01/05/18 01/05/18 Ipratropium/Albuterol Sulfate 1 puff IH QID PRN 01/05/18 01/05/18 [Combivent Respimat Inhal Fouke] LORazepam [Ativan] 0.75 mg PO Q6H PRN 01/05/18 01/05/18 Methocarbamol [Robaxin-750] 1,500 mg PO BID PRN 01/05/18 01/05/18 Mirtazapine [Remeron] 30 mg PO HS 01/05/18 01/05/18 NALOXONE 4 MG Nasal Fouke [Narcan] 4 mg NS AD PRN 01/05/18 01/05/18 OxyCODONE Immed Rel [Roxicodone 30 30 mg PO Q6H PRN 01/05/18 01/05/18 MG] Pregabalin [Lyrica] 150 mg PO QID 01/05/18 01/05/18 Promethazine [Phenergan] 25 mg PO Q6H PRN 01/05/18 01/05/18 Venlafaxine XR (24 HR) [Effexor XR] 225 mg PO QAM 01/05/18 01/05/18 predniSONE [PredniSONE] 10 mg PO DAILY 01/05/18 01/05/18 Allergies Allergy/AdvReac Type Severity Reaction Status Date / Time No Known Allergies Allergy Verified 11/04/17 22:44 Review of Systems: CONSTITUTIONAL: Subjective fever and chills HEENT: Eyes: No visual changes. Ears, Nose, Throat: No hearing loss, difficulty talking or unable to swallow. SKIN: No rash or itching. CARDIOVASCULAR: No chest pain, chest pressure or chest discomfort. No palpitations or edema. RESPIRATORY: Shortness of breath and cough GASTROINTESTINAL: No anorexia, nausea, vomiting or diarrhea. No abdominal pain or blood. GENITOURINARY: No burning on urination or hematuria. NEUROLOGICAL: No headache, dizziness, syncope, paralysis, ataxia, numbness or tingling in the extremities. No change in bowel or bladder control. MUSCULOSKELETAL: Back pain Past Medical History - Past Medical History Medical history: Reports: atrial fibrillation, cancer, CHF, COPD, CVA, hypertension, other Psychiatric history: Reports: anxiety, depression - Social History Smoking Status: Former smoker Smokeless Tobacco Status: No Alcohol use: Reports: none Drug use: Reports: none Physical Exam General: Moderate respiratory distress Head: Normocephalic Atraumatic Eyes: PERRL, EOMI ENT: Airway patent, no stridor Neck: supple, no meningismus Chest: Rales at bases bilaterally. Wheezing and rhonchi upper airways. Cardiac: Regular rate and rhythm, no murmurs, rubs or gallops Abdomen: soft, nontender, nondistended; no guarding, rebound, or tenderness to percussion Musculoskeletal: Calves symmetric, nontender, no palpable cord Skin: No rash, normal skin tone Neuro: Alert and Oriented to person, place, and time; No focal deficit, CN 2-12 symmetric and intact - General Limitations: no limitations General appearance: alert, in no apparent distress Course - Reevaluation(s) Reevaluation #1: Patient with COPD exacerbation. Concern for clinical pneumonia as well as worsening chest x-ray more likely pneumonia than rapidly expanding metastasis. Recent bronchoscopy. HCAP Coverage. - Consultations Consultation #1: Discussed with hospitalist. Patient accepted for admission. Vital Signs Temperature 97.9 F 01/05/18 12:04 Pulse Rate 102 01/05/18 12:04 Respiratory Rate 12 01/05/18 12:04 Blood Pressure 116/76 01/05/18 12:04 O2 Sat by Pulse Oximetry 97 01/05/18 12:04 Temperature 98.3 F 01/05/18 19:04 Pulse Rate 104 01/05/18 19:04 Respiratory Rate 18 01/05/18 19:04 Blood Pressure 148/84 01/05/18 19:04 O2 Sat by Pulse Oximetry 96 01/05/18 19:04 Oxygen Delivery Oxygen Delivery Nasal Cannula Shortness of Breath/Dyspnea - Medical Records Medical records reviewed: Yes I reviewed the patient's medical records. - Lab Data Lab results reviewed: Yes I reviewed the patient's lab results. Result diagrams: 01/05/18 12:23 01/05/18 12:23 Lab Results 01/05/18 01/05/18 01/05/18 Range/Units 12:23 12:23 12:23 WBC 9.8 (4.3-11.1) K/mcL RBC 4.46 (4.19-5.50) M/mcL Hgb 13.0 (12.9-16.9) g/dL Hct 40.8 (37.5-50.1) % MCV 91.5 (83.0-100.0) fL MCH 29.1 (28.0-33.3) pg MCHC 31.9 (31.6-35.5) g/dL RDW 15.5 H (11.5-14.5) % Plt Count 202 (140-400) K/mcL MPV 10.8 (9.4-12.4) fL Immature Gran % 1.1 (0-4) % Seg Neutrophils % 82.0 % Lymphocytes % 8.2 % Monocytes % 7.4 % Eosinophils % 0.9 % Basophils % 0.4 % Neutrophils # 8.0 (1.6-8.9) K/mcL Lymphocytes # 0.8 (0.6-4.6) K/mcL Monocytes # 0.7 (0.0-1.3) K/mcL Eosinophils # 0.1 (0.0-0.6) K/mcL Basophils # 0.0 (0.0-0.2) K/mcL PT 21.8 H (9.4-12.1) Seconds INR 2.0 Sodium 142 (136-145) mEq/L Potassium 3.9 (3.5-5.1) mEq/L Chloride 105 (98-107) mEq/L Carbon Dioxide 32 H (23-29) mEq/L BUN 16 (8-23) mg/dL Creatinine 0.97 (0.70-1.30) mg/dL Est GFR ( Amer) > 60 (> 60) Est GFR (Non-Af Amer) > 60 (> 60) BUN/Creatinine Ratio 16 (6-26) Glucose 156 H (70-105) mg/dL Calculated Osmolality 298 (280-300) Lactic Acid (0.5-2.2) mmol/L Calcium 8.9 (8.6-10.3) mg/dL Troponin I (< 0.04) ng/mL B-Natriuretic Peptide (Less than 100) pg/mL 01/05/18 01/05/18 01/05/18 Range/Units 12:23 12:23 12:23 WBC (4.3-11.1) K/mcL RBC (4.19-5.50) M/mcL Hgb (12.9-16.9) g/dL Hct (37.5-50.1) % MCV (83.0-100.0) fL MCH (28.0-33.3) pg MCHC (31.6-35.5) g/dL RDW (11.5-14.5) % Plt Count (140-400) K/mcL MPV (9.4-12.4) fL Immature Gran % (0-4) % Seg Neutrophils % % Lymphocytes % % Monocytes % % Eosinophils % % Basophils % % Neutrophils # (1.6-8.9) K/mcL Lymphocytes # (0.6-4.6) K/mcL Monocytes # (0.0-1.3) K/mcL Eosinophils # (0.0-0.6) K/mcL Basophils # (0.0-0.2) K/mcL PT (9.4-12.1) Seconds INR Sodium (136-145) mEq/L Potassium (3.5-5.1) mEq/L Chloride (98-107) mEq/L Carbon Dioxide (23-29) mEq/L BUN (8-23) mg/dL Creatinine (0.70-1.30) mg/dL Est GFR ( Amer) (> 60) Est GFR (Non-Af Amer) (> 60) BUN/Creatinine Ratio (6-26) Glucose (70-105) mg/dL Calculated Osmolality (280-300) Lactic Acid 2.0 (0.5-2.2) mmol/L Calcium (8.6-10.3) mg/dL Troponin I < 0.03 (< 0.04) ng/mL B-Natriuretic Peptide 71 (Less than 100) pg/mL 01/05/18 Range/Units 14:55 WBC (4.3-11.1) K/mcL RBC (4.19-5.50) M/mcL Hgb (12.9-16.9) g/dL Hct (37.5-50.1) % MCV (83.0-100.0) fL MCH (28.0-33.3) pg MCHC (31.6-35.5) g/dL RDW (11.5-14.5) % Plt Count (140-400) K/mcL MPV (9.4-12.4) fL Immature Gran % (0-4) % Seg Neutrophils % % Lymphocytes % % Monocytes % % Eosinophils % % Basophils % % Neutrophils # (1.6-8.9) K/mcL Lymphocytes # (0.6-4.6) K/mcL Monocytes # (0.0-1.3) K/mcL Eosinophils # (0.0-0.6) K/mcL Basophils # (0.0-0.2) K/mcL PT (9.4-12.1) Seconds INR Sodium (136-145) mEq/L Potassium (3.5-5.1) mEq/L Chloride (98-107) mEq/L Carbon Dioxide (23-29) mEq/L BUN (8-23) mg/dL Creatinine (0.70-1.30) mg/dL Est GFR ( Amer) (> 60) Est GFR (Non-Af Amer) (> 60) BUN/Creatinine Ratio (6-26) Glucose (70-105) mg/dL Calculated Osmolality (280-300) Lactic Acid 2.1 (0.5-2.2) mmol/L Calcium (8.6-10.3) mg/dL Troponin I (< 0.04) ng/mL B-Natriuretic Peptide (Less than 100) pg/mL - Radiology Data Radiology results reviewed: Yes I reviewed the patient's radiology results. - EKG Data EKG attestation: Yes I reviewed and interpreted this EKG. EKG results narrative: EKG shows sinus tachycardia with a rate of 101. P-R 160. QRS 93. QTC 391. No significant elevations or depressions. Unchanged from previous of 05/03/17. Attestation Statement - Attestation Attestation: I examined this patient and my medical decision-making was reviewed with the Resident Physician. I agree with the documented findings, disposition and treatment plan as described except to the extent set forth below. Patient to the ED with shortness of breath. Progressively worse over the past couple of hours. Coughing. Fever chills. History of COPD. He also has lung cancer. On examination he is not visibly dyspneic. He does have diffuse rales rhonchi and wheezing. Plan. Cardiac workup. Likely admission.
[2018-01-05 12:35] LABS: Basophils % 0.4 %; Eosinophils # 0.1 K/mcL (0.0-0.6); Eosinophils % 0.9 %; Hematocrit 40.8 % (37.5-50.1); Immature Granulocytes % 1.1 % (0-4); Lymphocytes # 0.8 K/mcL (0.6-4.6); Lymphocytes % 8.2 %; Mean Corpuscular HGB Conc 31.9 g/dL (31.6-35.5); Mean Corpuscular Hemoglobin 29.1 pg (28.0-33.3); Mean Corpuscular Volume 91.5 fL (83.0-100.0); Mean Platelet Volume 10.8 fL (9.4-12.4); Monocytes # 0.7 K/mcL (0.0-1.3); Monocytes % 7.4 %; Platelet Count 202 K/mcL (140-400); Red Blood Count 4.46 M/mcL (4.19-5.50); Red Cell Distribution Width 15.5 % (11.5-14.5)
[2018-01-05] MEDS ORDERED: Piperacillin/Tazobactam 3.375 GM in 0.9 % Sodium Chloride Mini Bag 100 ML IVPB ONE (12:36)
[2018-01-05] MEDS ORDERED: Levofloxacin 750 MG/150 ML 750 MG/150 ML BAG IVPB ONE (12:36)
[2018-01-05 12:40] LABS: Prothrombin Time 21.8 Seconds (9.4-12.1)
[2018-01-05 12:45] LABS: Calcium 8.9 mg/dL (8.6-10.3); Carbon Dioxide 32 mEq/L (23-29); Chloride 105 mEq/L (98-107); Potassium 3.9 mEq/L (3.5-5.1); Sodium 142 mEq/L (136-145)
[2018-01-05 12:50] LABS: BUN/Creatinine Ratio 16 (6-26); Blood Urea Nitrogen 16 mg/dL (8-23); Glucose 156 mg/dL (70-105); Osmolality,Calculated 298 (280-300); eGFR For African Americans > 60 (> 60); eGFR For Non-African Americans > 60 (> 60)
--- NOTE | 2018-01-05 14:47 | Internal Med History&Physical ---
Date of Encounter: 01/05/18 Time of Encounter: 14:42 Assessment and Plan (1) Acute and chronic respiratory failure Current visit: No Status: Acute Will admit the patient and treat him as a COPD exacerbation. Chest x-ray findings are likely from his known lung cancer versus radiation scarring. Patient is chronically on 2 L intermittently. Treatment is as below. Qualifiers: Respiratory failure complication: hypoxia Qualified Code(s): J96.21 - Acute and chronic respiratory failure with hypoxia (2) Acute exacerbation of chronic obstructive airways disease Current visit: No Status: Acute We will start the patient on IV steroids. Nebulizers treatment. Start Levaquin. Wean down oxygen as tolerated. (3) History of lung cancer Current visit: No Status: Acute Follow-up as outpatient. Recent bronchoscopy for possible recurrence. Patient had chemoradiation in the past. (4) Chronic atrial fibrillation Current visit: No Status: Chronic Rate control. Resume home meds. Anticoagulated with Coumadin. INR is therapeutic today. (5) DVT prophylaxis Current visit: No Status: Acute On Coumadin Internal Medicine - H&P: HPI Chief complaint: Shortness of breath Admitted From: Home Plans for Post Hospital Care: Home History of present illness: Mr. Davies is a 62 year old male right lung adenocarcinoma status post chemoradiation with suspected recurrence for which he is undergoing workup, hypertension, A. fib on Coumadin, COPD on chronic O2 intermittently 2 L, hyperlipidemia presents with shortness of breath has been progressively getting worse. The patient has a history of right lung adenocarcinoma for which she was treated with chemoradiation years ago however lately he has been dealing with possible recurrence and has been going through follow-ups and recently underwent a bronchoscopy about a week ago or so. Results of that is unknown yet. His shortness of breath started about yesterday for which she has used multiple inhalers and breathing treatments at home which has not helped. States that he has been through symptoms like this in the past and required IV steroids multiple times which relieved his symptoms. Denies fever or chills. He does have intermittent cough with productive sputum a time. Sputum color is clear. In the emergency department the patient was given multiple breathing treatments and IV steroids. He was tachypneic and tachycardic on presentation. His lowest O2 sats were 90-91. He was put on 2 L nasal cannula oxygen and was up to the upper 90s. Laboratory workup was mostly unremarkable in the ED. A chest x-ray showed bilateral lung airspace disease which is similar to previous. There was no definitive new infiltrates. The patient denies any blurry vision, headache, nausea, vomiting, chest pain, abdominal pain, urinary symptoms, or neurological symptoms Past Med Surg Social Fam HX - Past Medical History Medical history: atrial fibrillation, cancer, CHF, COPD, CVA, hypertension, other Psychiatric history: anxiety, depression - Social History Smoking Status: Former smoker Smokeless Tobacco Status: No Alcohol use: none Drug use: none - Family History Father Adopted: No Family Member Ethnicity: Non- Living Status: Hx Family Cardiac Disorders: No Hx Family Respiratory Disorders: Yes Hx Family Cancer: No Hx Family GI Disorders: No Hx Family Endocrine Disorder: Yes Hx Family Neuromuscular Disorders: No Hx Family Neurologic Disorders: No Hx Family HEENT Disorders: No Hx Family Autoimmune Disorders: No Internal Medicine - H&P: Meds Aspirin [Adult Low Dose Aspirin EC] 81 mg PO DAILY 10/30/15 [History] Dronendrone [Multaq] 400 mg PO BID 10/30/15 [History] Furosemide [Lasix] 20 mg PO BID 10/30/15 [History] Omeprazole [PriLOSEC] 40 mg PO DAILY 10/30/15 [History] Venlafaxine [Effexor] 150 mg PO BID 10/30/15 [History] Warfarin [Coumadin] 5 mg PO SUTUWETHFRSA 10/30/15 [History] Diltiazem HCl [Diltiazem 24Hr Cd] 240 mg PO HS 11/01/15 [History] Albuterol Neb [Proventil Neb] 2.5 mg IH Q4HR PRN 04/10/16 [History] Atorvastatin [Lipitor] 20 mg PO HS 04/10/16 [History] Oxygen 2 l .ROUTE AD 04/10/16 [History] Pregabalin [Lyrica] 150 mg PO QID 04/10/16 [History] Warfarin [Coumadin] 7.5 mg PO MO 04/10/16 [History] Albuterol Sulfate [Albuterol Inhaler] 2 puff IH Q4H PRN 05/15/16 [History] Baclofen [Lioresal] 10 mg PO TID PRN 03/23/17 [History] Budesonide/Formoterol 160/4.5 [Symbicort 160/4.5] 2 puff IH BIDR 03/23/17 [ History] Lidocaine Patch [Lidoderm 5% patch] 1 patch TP DAILY 03/23/17 [History] Potassium Chloride [Klor-Con 10] 20 meq PO DAILY 03/23/17 [History] Sennosides/Docusate Sodium [Senna Plus] 2 tab PO [id number] 03/23/17 [History] Ipratropium/Albuterol Neb [Duoneb] 3 ml IH [id number] #0 inhsol 03/26/17 [Rx] Eszopiclone [Lunesta] 2 mg PO HS 08/24/17 [History] Roflumilast [Daliresp] 500 mcg PO DAILY 08/24/17 [History] Oxycodone HCl [Oxaydo] 5 mg PO Q6H PRN 09/13/17 [History] 3 Allergy/AdvReac Type Severity Reaction Status Date / Time No Known Allergies Allergy Verified 11/04/17 22:44 All Systems PM: A 10-system review of systems was performed and is negative for pertinent findings except as documented above in the HPI. Review of systems: All systems reviewed are negative except for as mentioned above - Constitutional Vitals: Temp Pulse Resp BP Pulse Ox 97.9 F 97 18 132/75 97 01/05/18 12:04 01/05/18 14:30 01/05/18 14:30 01/05/18 14:30 01/05/18 14:30 Exam: GEN: NAD HEENT: AT, NC, No cyanosis, oral mucosa is moist, No JVD Lymphatics: No lymphadenoapthy Eyes: Extrocular muscles intact, anicteric CVS:RRR. S1, S2, No m/r/g RESP: Rhonchi and rales at the bases. Expiratory wheezes posteriorly. ABD: Soft, NT, ND, +BS EXT: No edema, No rashes, 2+ DP NEURO: Nonfocal, CN II-XII intact, No focal motor or sensory deficits Psych: Cooperative, Not anxious or depressed Internal Med - H&P Results - Labs CBC & Chem 7: 01/05/18 12:23 01/05/18 12:23 Labs: Short CBC 01/05/18 Range/Units 12:23 WBC 9.8 (4.3-11.1) K/mcL Hgb 13.0 (12.9-16.9) g/dL Hct 40.8 (37.5-50.1) % Plt Count 202 (140-400) K/mcL Neutrophils # 8.0 (1.6-8.9) K/mcL BMP 01/05/18 12:23 Sodium 142 Potassium 3.9 Chloride 105 Carbon Dioxide 32 H BUN 16 Creatinine 0.97 Glucose 156 H Calcium 8.9 Cardiac Enzymes 01/05/18 Range/Units 12:23 Troponin I < 0.03 (< 0.04) ng/mL - Impressions ITS Impressions Chest X-Ray 01/05/18 12:05 IMPRESSION: Bilateral right greater than left mid lung airspace disease, which has a similar distribution to the recent PET scan. No definite new infiltrates compared to that exam. Differential considerations include possible evolution of radiation change, or progressive metastatic disease, there may also be a superimposed infectious process. D/ / Choco Chau MD / Choco Chau MD Interpreting Provider: Choco Chau MD
[2018-01-05] MEDS ORDERED: Ipratropium/Albuterol Neb 3 ML IH PRN (14:49)
[2018-01-05] MEDS ORDERED: Acetaminophen 325 MG TABLET PO PRN (14:51)
[2018-01-05] MEDS ORDERED: Naloxone 0.4 MG/ML INJ IVP PRN (14:51)
[2018-01-05] MEDS ORDERED: Levofloxacin 500 MG/100 ML 500 MG/100 ML BAG IVPB SCH (16:00)
[2018-01-05] MEDS ORDERED: methylPREDNISolone 125 MG/2 ML VIAL IVP SCH (16:00)
--- NOTE | 2018-01-05 16:11 | Electrocardiograph Report ---
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
[2018-01-05] MEDS ORDERED: *HR* HYDROcodone/Acet 5/325 mg TABLET PO PRN (17:33)
[2018-01-05] MEDS ORDERED: Methocarbamol 750 MG TABLET PO PRN (17:34)
[2018-01-05] MEDS ORDERED: *HR* Warfarin 5 MG TABLET PO ONE (18:00)
[2018-01-05] MEDS ORDERED: Warfarin perPT PO PRN (18:00)
[2018-01-05] MEDS: *HR* OxyCODONE Immed Rel 15 MG TABLET PO PRN (18:05)
[2018-01-05] MEDS: Acetylcysteine 10% 2 ML INHSOL IH SCH ×2 (19:44→23:08)
[2018-01-05] MEDS: Furosemide 20 MG TABLET PO SCH (21:16)
[2018-01-05] MEDS: Mirtazapine 15 MG TABLET PO SCH (21:16)
[2018-01-05] MEDS: Pregabalin 75 MG CAPSULE PO SCH (21:16)
[2018-01-05] MEDS: *HR* LORazepam 0.5 MG TABLET PO PRN (21:21)
[2018-01-05] MEDS: Budesonide/Formoterol 160/4.5 MDI IH SCH (23:07)
[2018-01-05] MEDS: Ipratropium/Albuterol Neb 3 ML IH SCH ×2 (23:08→23:11)
[2018-01-06] MEDS: *HR* OxyCODONE Immed Rel 15 MG TABLET PO PRN ×3 (02:41→17:35)
[2018-01-06] MEDS: Ipratropium/Albuterol Neb 3 ML IH SCH ×6 (03:57→23:40)
[2018-01-06 05:49] LABS: Basophils % 0.2 %; Hematocrit 44.6 % (37.5-50.1); Hemoglobin 13.7 g/dL (12.9-16.9); Immature Granulocytes % 0.7 % (0-4); Lymphocytes # 0.4 K/mcL (0.6-4.6); Lymphocytes % 3.1 %; Mean Corpuscular HGB Conc 30.7 g/dL (31.6-35.5); Mean Corpuscular Hemoglobin 29.1 pg (28.0-33.3); Mean Corpuscular Volume 94.9 fL (83.0-100.0); Mean Platelet Volume 11.3 fL (9.4-12.4); Monocytes # 0.5 K/mcL (0.0-1.3); Monocytes % 4.1 %; Neutrophils # 10.2 K/mcL (1.6-8.9); Platelet Count 236 K/mcL (140-400); Red Cell Distribution Width 15.7 % (11.5-14.5); Segmented Neutrophils % 91.9 %
[2018-01-06 05:55] LABS: INR 1.8
[2018-01-06] MEDS: methylPREDNISolone 125 MG/2 ML VIAL IVP SCH ×4 (06:08→23:58)
[2018-01-06] MEDS: *HR* LORazepam 0.5 MG TABLET PO PRN ×2 (06:12→12:33)
[2018-01-06 06:31] LABS: BUN/Creatinine Ratio 13 (6-26); Blood Urea Nitrogen 12 mg/dL (8-23); Calcium 9.5 mg/dL (8.6-10.3); Carbon Dioxide 27 mEq/L (23-29); Chloride 106 mEq/L (98-107); Glucose 170 mg/dL (70-105); Magnesium 2.2 mg/dL (1.6-2.6); Osmolality,Calculated 300 (280-300); Potassium 3.5 mEq/L (3.5-5.1); Sodium 143 mEq/L (136-145); eGFR For African Americans > 60 (> 60); eGFR For Non-African Americans > 60 (> 60)
[2018-01-06] MEDS: Acetylcysteine 10% 2 ML INHSOL IH SCH ×3 (08:12→20:39)
[2018-01-06] MEDS: Diltiazem CD (24hr) 240 MG CAPSULE PO SCH (08:24)
[2018-01-06] MEDS: Aspirin Enteric Coated 81 MG Tablet PO SCH (08:25)
[2018-01-06] MEDS: Furosemide 20 MG TABLET PO SCH ×2 (08:25→20:09)
[2018-01-06] MEDS: Pregabalin 75 MG CAPSULE PO SCH ×4 (08:25→20:09)
[2018-01-06] MEDS: Venlafaxine XR (24 HR) 75 MG CAP.ER.24H PO SCH (08:25)
[2018-01-06] MEDS: (Roflumilast [Daliresp] 500 MCG) PO SCH (08:43)
[2018-01-06] MEDS: Budesonide/Formoterol 160/4.5 MDI IH SCH ×2 (11:33→20:39)
--- NOTE | 2018-01-06 16:41 | Internal Med Progress Note ---
Date of Encounter: 01/06/18 Time of Encounter: 16:36 - Assessment and plan (1) COPD exacerbation Current Visit: Yes Status: Acute Assessment and plan: Has known COPD. Suspect acute exacerbation with worsening shortness of breath and wheezing. CXR without infiltrates. Urinary antigens negative. Resp PCR pendong Symptoms significantly improved with IV ATB, steroids and DuoNeb's. Increase Levaquin to 750, continue steroids, nebulizer treatments and mucomyst (2) Acute CHF (congestive heart failure) Current Visit: No Status: Chronic Assessment and plan: 08/2015 TTE with reserved EF and mild diastolic dysfunction. Appears in mild overload with rails on exam. Give one time dose IV lasix. Check BNP, repeat echo Qualifiers: Qualified Code(s): I50.31 - Acute diastolic (congestive) heart failure (3) Chronic atrial fibrillation Current Visit: No Status: Chronic Assessment and plan: per hx. With HRs in low 100s. Cont home CCB. One time dose of metoprolol. Cont coumadin (4) History of lung cancer Current Visit: No Status: Acute Assessment and plan: per hx. Follows with [facility]. Recently had an outpatient biopsy for recurrent lung nodule. Follow-up with [facility] as previously planned (5) DVT prophylaxis Current Visit: No Status: Acute Assessment and plan: coumadin - Subjective Interval history: Seen and examined at bedside, patient is new to me. The patient came chart review and patient report. Still with shortness of breath but overall improved. Has productive cough. No chest pain. No fevers or chills overnight - Constitutional Vitals: Temp Pulse Resp BP Pulse Ox 99.0 F 108 18 118/63 94 01/06/18 16:10 01/06/18 16:10 01/06/18 16:10 01/06/18 16:10 01/06/18 16:10 General appearance: Present: mild distress, A&O X 3 - Head Head exam: Present: atraumatic, normocephalic - Eye Eye exam: Present: PERRL, conjuntiva pink, sclera anicteric Pupils: Present: PERRL - Neck Neck exam general surgery: Present: supple, trachea midline. Absent: lymphadenopathy - Respiratory Respiratory exam: Present: CTAB, rales, rhonchi, wheezes. Absent: accessory muscle use - Cardiovascular Cardiovascular exam: Present: RRR, +S1, +S2. Absent: diastolic murmur, gallop, rubs, systolic murmur - GI/Abdominal GI/Abdominal exam: Present: normal bowel sounds, soft, no peritoneal signs. Absent: distended, tenderness - Extremities Exam Extremities exam: Present: warm, radial pulses palpable and symmetrical. Absent : calf tenderness, cyanotic, pedal edema - Neurological Exam Neurological exam: Present: CN II-XII intact, oriented X3, no focal deficits. Absent: pronater drift, facial droop, speech deficit - Skin Skin exam: Present: dry, intact Internal Medicine: Result - Labs CBC & Chem 7: 01/06/18 05:38 01/06/18 05:38 Labs: Short CBC 01/06/18 Range/Units 05:38 WBC 11.1 (4.3-11.1) K/mcL Hgb 13.7 (12.9-16.9) g/dL Hct 44.6 (37.5-50.1) % Plt Count 236 (140-400) K/mcL Neutrophils # 10.2 H (1.6-8.9) K/mcL BMP 01/06/18 05:38 Sodium 143 Potassium 3.5 Chloride 106 Carbon Dioxide 27 BUN 12 Creatinine 0.95 Glucose 170 H Calcium 9.5 - ABG Interpretation ABG results: PT/INR, D-dimer PT 20.0 Seconds (9.4-12.1) H 01/06/18 05:38 Consult Discharge Plan - Plan [facility]errals[facility]Primary Care Provider[facility] -
[2018-01-06] MEDS ORDERED: Levofloxacin 500 MG/100 ML 500 MG/100 ML BAG IVPB SCH (17:00)
[2018-01-06] MEDS ORDERED: Furosemide 20 MG/2 ML VIAL IVP ONE (17:03)
[2018-01-06] MEDS ORDERED: *HR* Warfarin 5 MG TABLET PO ONE (18:00)
[2018-01-06] MEDS: Mirtazapine 15 MG TABLET PO SCH (20:09)
[2018-01-07] MEDS: *HR* OxyCODONE Immed Rel 15 MG TABLET PO PRN ×2 (03:20→09:16)
[2018-01-07] MEDS: Ipratropium/Albuterol Neb 3 ML IH SCH ×3 (03:50→11:24)
[2018-01-07 04:42] LABS: INR 1.9; Prothrombin Time 20.4 Seconds (9.4-12.1)
[2018-01-07 04:51] LABS: BUN/Creatinine Ratio 23 (6-26); Blood Urea Nitrogen 22 mg/dL (8-23); Calcium 9.2 mg/dL (8.6-10.3); Carbon Dioxide 30 mEq/L (23-29); Chloride 105 mEq/L (98-107); Glucose 188 mg/dL (70-105); Osmolality,Calculated 302 (280-300); Potassium 3.6 mEq/L (3.5-5.1); Sodium 142 mEq/L (136-145); eGFR For African Americans > 60 (> 60); eGFR For Non-African Americans > 60 (> 60)
[2018-01-07] MEDS: Acetylcysteine 10% 2 ML INHSOL IH SCH (08:16)
[2018-01-07] MEDS: Budesonide/Formoterol 160/4.5 MDI IH SCH (08:16)
[2018-01-07] MEDS ORDERED: Levofloxacin 750 MG/150 ML 750 MG/150 ML BAG IVPB SCH (09:00)
[2018-01-07] MEDS: Pregabalin 75 MG CAPSULE PO SCH ×2 (09:09→12:44)
[2018-01-07] MEDS: Diltiazem CD (24hr) 240 MG CAPSULE PO SCH (09:09)
[2018-01-07] MEDS: Venlafaxine XR (24 HR) 75 MG CAP.ER.24H PO SCH (09:09)
[2018-01-07] MEDS: Aspirin Enteric Coated 81 MG Tablet PO SCH (09:11)
[2018-01-07] MEDS: Furosemide 20 MG TABLET PO SCH (09:11)
[2018-01-07] MEDS: (Roflumilast [Daliresp] 500 MCG) PO SCH (09:25)
--- NOTE | 2018-01-07 11:46 | Discharge Summary ---
- NOTES TO OUTPATIENT PROVIDER Notes to Outpatient Provider: INR needs monitor closely. Recommend repeating INR on Wednesday01/10/18. He was discharged home on Levaquin Orders not resulted at time of discharge: Pending orders 01/08/18 04:00 Prothrombin Time INR [COAG] AM 0400 01/09/18 04:00 Prothrombin Time INR [COAG] AM 0400 01/10/18 04:00 Prothrombin Time INR [COAG] AM 0400 01/11/18 04:00 Prothrombin Time INR [COAG] AM 0400 Date of Encounter: 01/07/18 Time of Encounter: 11:46 - Discharge Diagnosis (1) COPD exacerbation Priority: Primary Status: Acute Comments: Has known COPD; with chronic respiratory failure (on home O2). Suspect acute exacerbation with worsening shortness of breath and wheezing. CXR without infiltrates. Urinary antigens negative. Symptoms significantly improved with IV ATB, steroids and DuoNeb's. Discharge home on steroid worse, Levaquin. Continue home nebulizer treatments. Resp PCR pending at time of discharge. Recommend follow-up with PCP within one week. (2) Acute CHF (congestive heart failure) Priority: Primary Status: Acute Comments: per hx. TTE with EF 55%, indeterminate diastolic dysfunction. BNP 92. Chest x- ray without overt heart failure. Clinically appeared overloaded with rails on exam. Received one-time dose IV Lasix with improvement in symptoms. Continue home Lasix at discharge. Recommend follow-up with PCP within one week Qualifiers: Qualified Code(s): I50.31 - Acute diastolic (congestive) heart failure (3) Chronic atrial fibrillation Priority: Secondary Status: Chronic Comments: per hx. With HRs in low 100s. Received one-time dose BB with improvement heart rate. Heart rate controlled at time of discharge. Continue home CCB, multaq, Coumadin. Patient is aware that INR will need to be closely monitored as can interact with Levaquin. INR to be checked on Wednesday01/10/18 per [facility] RN (4) History of lung cancer Priority: Secondary Status: Chronic Comments: per hx. Follows with [facility]. Recently had an outpatient biopsy for recurrent lung nodule. Follow-up with [facility] as previously planned Hospital course: Mr. Davies is a 62 year old male with PMH COPD, diastolic heart failure, A. fib and lung cancer who presented to [facility] on 01/06/18 with complaints of shortness of breath. He was found to be in acute COPD and CHF exacerbation. Symptoms significantly improved with IV Lasix, IV steroids and antibiotic. His respiratory status improved to baseline at time of discharge. Please see assessment and plan for further details. Discharge discussed with: patient - Time Spent with Patient Total time spent providing and/or coordinating discharge services: Greater than 30 minutes - Discharge Medications Prescriptions: levoFLOXacin [Levaquin] 750 mg PO DAILY #6 tablet predniSONE [PredniSONE] 40 mg PO DAILY #10 tablet Warfarin [Coumadin] 5 mg PO 1800 #30 tablet Home Medications: Aspirin [Adult Low Dose Aspirin EC] 81 mg PO DAILY 10/30/15 [History] Furosemide [Lasix] 20 mg PO BID 10/30/15 [History] Omeprazole [PriLOSEC] 20 mg PO BID 10/30/15 [History] Diltiazem HCl [Diltiazem 24Hr Cd] 240 mg PO DAILY 11/01/15 [History] Atorvastatin [Lipitor] 20 mg PO HS 04/10/16 [History] Oxygen 2 l .ROUTE AD 04/10/16 [History] Budesonide/Formoterol 160/4.5 [Symbicort 160/4.5] 2 puff IH BIDR 03/23/17 [ History] Potassium Chloride [Klor-Con 10] 20 meq PO DAILY 03/23/17 [History] Roflumilast [Daliresp] 500 mcg PO DAILY 08/24/17 [History] Acetaminophen [Tylenol] 650 mg PO Q6H PRN 01/05/18 [History] Capsaicin [Arthritis Pain Relief] 1 appl TP QID 01/05/18 [History] Dronedarone [Multaq] 400 mg PO BIDWM 01/05/18 [History] GuaiFENesin/Dextromethorphan [Tussin Dm Syrup] 10 ml PO Q6H PRN 01/05/18 [ History] Ipratropium/Albuterol Neb [Duoneb] 3 ml IH Q4H 01/05/18 [History] Ipratropium/Albuterol Sulfate [Combivent Respimat Inhal Nallen] 1 puff IH QID PRN 01/05/18 [History] LORazepam [Ativan] 0.75 mg PO Q6H PRN 01/05/18 [History] Methocarbamol [Robaxin-750] 1,500 mg PO BID PRN 01/05/18 [History] Mirtazapine [Remeron] 30 mg PO HS 01/05/18 [History] NALOXONE 4 MG Nasal Nallen [Narcan] 4 mg NS AD PRN 01/05/18 [History] OxyCODONE Immed Rel [Roxicodone 30 MG] 30 mg PO Q6H PRN 01/05/18 [History] Pregabalin [Lyrica] 150 mg PO QID 01/05/18 [History] Promethazine [Phenergan] 25 mg PO Q6H PRN 01/05/18 [History] Venlafaxine XR (24 HR) [Effexor XR] 225 mg PO QAM 01/05/18 [History] predniSONE [PredniSONE] 10 mg PO DAILY 01/05/18 [History] Warfarin [Coumadin] 5 mg PO 1800 #30 tablet 01/07/18 [Rx] levoFLOXacin [Levaquin] 750 mg PO DAILY #6 tablet 01/07/18 [Rx] predniSONE [PredniSONE] 40 mg PO DAILY #10 tablet 01/07/18 [Rx] Allergies/Adverse Reactions: 3 Allergy/AdvReac Type Severity Reaction Status Date / Time No Known Allergies Allergy Verified 11/04/17 22:44 Date of admission: 01/05/18 15:22 Primary care physician: [facility] Discharging clinician: Francesca Romo Anticipated date of discharge: 01/07/18 - Constitutional Vitals: Temp Pulse Resp BP Pulse Ox 98.5 F 94 16 124/64 96 01/07/18 07:18 01/07/18 07:18 01/07/18 08:16 01/07/18 07:18 01/07/18 08:16 General appearance: Present: A&O X 3 - Head Head exam: Present: atraumatic, normocephalic - Eye Eye exam: Present: PERRL, conjuntiva pink, sclera anicteric Pupils: Present: PERRL - Neck Neck exam general surgery: Present: supple, trachea midline. Absent: lymphadenopathy - Respiratory Respiratory exam: Present: CTAB, rhonchi, wheezes. Absent: accessory muscle use , rales Additional comments: Scattered rhonchi and wheezing overall improved from yesterday's exam. - Cardiovascular Cardiovascular exam: Present: RRR, +S1, +S2. Absent: diastolic murmur, gallop, rubs, systolic murmur - GI/Abdominal GI/Abdominal exam: Present: normal bowel sounds, soft, no peritoneal signs. Absent: distended, tenderness - Extremities Exam Extremities exam: Present: warm, radial pulses palpable and symmetrical. Absent : calf tenderness, cyanotic, pedal edema - Neurological Exam Neurological exam: Present: CN II-XII intact, oriented X3, no focal deficits. Absent: pronater drift, facial droop, speech deficit - Skin Skin exam: Present: dry, intact - Patient Status Disposition: Home, Self-Care Condition: Good Functional capacity at discharge: independent ambulation Overall status at discharge: patient is not back to baseline - Discharge Instructions Instructions: Chronic Obstructive Pulmonary Disease (DC), Levofloxacin (By mouth), Warfarin (By mouth), Prednisone (By mouth) [facility] Care Provider[facility] - Additional Instructions: Please call your primary care doctor discharged to make a follow-up with him within 1 week Please have your INR checked per your home health care agency on Wednesday01/10/18 Your Coumadin dose has been changed to 5 mg every day. Follow-up with her primary care doctor on Wednesday01/10/18 once INR obtained for Coumadin adjustment if needed
[2018-01-07 12:03] VITALS: BP 126/77
[2018-01-07 14:09] LABS: Adenovirus Not Detected (Not Detect); Bordetella Pertussis Not Detected (Not Detect); Chlamydophila pneumoniae Not Detected (Not Detect); Coronavirus 229E Not Detected (Not Detect); Coronavirus HKU1 Not Detected (Not Detect); Coronavirus NL63 Not Detected (Not Detect); Coronavirus OC43 Not Detected (Not Detect); Human Metapneumovirus Not Detected (Not Detect); Human Rhinovirus/Enterovirus Not Detected (Not Detect); Influenza A Subtype 2009 H1 Not Detected (Not Detect); Influenza A Untypeable Not Detected (Not Detect); Influenza B Not Detected (Not Detect); Mycoplasma pneumoniae Not Detected (Not Detect); Parainfluenza Virus 1 Not Detected (Not Detect); Parainfluenza Virus 2 Not Detected (Not Detect); Parainfluenza Virus 3 Not Detected (Not Detect); Parainfluenza Virus 4 Not Detected (Not Detect); Respiratory Syncytial Virus Not Detected (Not Detect)
[2018-01-07] MEDS ORDERED: *HR* Warfarin 5 MG TABLET PO ONE (18:00)
== END 2018-01-07 15:40 | disposition home or self-care (01) | DRG 190 ==
LOC: 3BNU 12:02 → EMEROO 12:02 → 3BNU 15:30
PROVIDERS: ADMIT Family Medicine; ATTEND Registered Nurse